=== PATIENT | female | born 1995 | race African-American/Black ===

== ENCOUNTER 2017-06-25 23:57 | Inpatient (IN) | payer BC ==
[2017-06-26] MEDS ORDERED: fentaNYL* 50 MCG/ML 2 ML VIAL (100 MCG VIAL) ONE (05:57)
[2017-06-26 06:16] LABS: Hematocrit 32 % (35-47); Hemoglobin 10.2 g/dl (12.0-16.0); Mean Corpuscular HGB Conc 32 g/dl (31-36); Mean Corpuscular Hemoglobin 24 pg (27-31); Mean Corpuscular Volume 76 fL (80-97); Mean Platelet Volume 9 um3 (7.4-10.4); Red Cell Distribution Width 16 % (10.5-15); White Blood Count 11.4 10^3/ul (3.5-10.8)
[2017-06-26] MEDS ORDERED: Famotidine TAB* 20 MG PO PRN (06:56)
[2017-06-26] MEDS ORDERED: Phenylephrine IV* 40 MCG/ML 10 ML SYRINGE IV PUSH PRN (06:56)
[2017-06-26] MEDS ORDERED: Sodium Citrate/Citric Acid* 15 ML UDC PO PRN (06:56)
[2017-06-26] MEDS ORDERED: Oxytocin in LR* 20 UNITS/1,000 ML BAG IVPB SCH (07:00)
[2017-06-26] MEDS ORDERED: Zolpidem TAB* 5 MG PO PRN (10:21)
[2017-06-26] MEDS ORDERED: oxyCODONE/Acetamin 5/325 MG* TAB PO PRN (10:21)
[2017-06-26] MEDS ORDERED: Glycerin ADULT SUPP PR PRN (10:21)
[2017-06-26] MEDS ORDERED: Witch Hazel PAD* JAR TOPICAL PRN (10:21)
[2017-06-26] MEDS ORDERED: Acetaminophen TAB* 325 MG PO PRN (10:21)
[2017-06-26] MEDS ORDERED: Dibucaine 1% 28.35 GM TUBE PR PRN (10:21)
[2017-06-26] MEDS: Ibuprofen TAB* 600 MG PO PRN ×2 (10:44→19:08)
[2017-06-26] MEDS ORDERED: Simethicone CHEW TAB* 80 MG PO SCH (12:30)
[2017-06-26] MEDS: Docusate CAP* 100 MG PO SCH ×2 (14:05→20:10)
[2017-06-27] MEDS: Ibuprofen TAB* 600 MG PO PRN ×3 (01:52→21:12)
[2017-06-27 06:07] LABS: Hematocrit 26 % (35-47); Hemoglobin 8.3 g/dl (12.0-16.0); Mean Corpuscular HGB Conc 31 g/dl (31-36); Mean Corpuscular Hemoglobin 24 pg (27-31); Mean Corpuscular Volume 76 fL (80-97); Mean Platelet Volume 9 um3 (7.4-10.4); Red Blood Count 3.47 10^6/ul (4.0-5.4); Red Cell Distribution Width 16 % (10.5-15); White Blood Count 13.9 10^3/ul (3.5-10.8)
[2017-06-27] MEDS: Docusate CAP* 100 MG PO SCH ×3 (08:52→21:12)
[2017-06-27] MEDS: Ferrous Gluconate TAB* 324 MG TAB PO SCH ×2 (08:52→21:12)
[2017-06-28] MEDS: Ibuprofen TAB* 600 MG PO PRN (08:09)
[2017-06-28 08:12] VITALS: BP 117/74
[2017-06-28] MEDS: Docusate CAP* 100 MG PO SCH (08:51)
[2017-06-28] MEDS: Ferrous Gluconate TAB* 324 MG TAB PO SCH (08:51)
== END 2017-06-28 10:39 | disposition home or self-care (01) | DRG 560 ==
LOC: MCHOBOUT 23:57 → MCHOB 06-26 02:49
PROVIDERS: ADMIT Obstetrics & Gynecology; ATTEND Obstetrics & Gynecology
PROC: 4A1HXCZ Monitoring of Products of Conception, Cardiac Rate, External Approach (ICD-10-PCS; principal; 2017-06-26)
PROC: 10E0XZZ Delivery of Products of Conception, External Approach (ICD-10-PCS; 2017-06-26)
PROC: 10907ZC Drainage of Amniotic Fluid, Therapeutic from Products of Conception, Via Natural or Artificial Opening (ICD-10-PCS; 2017-06-26)
PROC: 0KQM0ZZ Repair Perineum Muscle, Open Approach (ICD-10-PCS; 2017-06-26)
DX: O69.81X0 Labor and delivery complicated by cord around neck, without compression, not applicable or unspecified (principal); O90.81 Anemia of the puerperium; Z3A.39 39 weeks gestation of pregnancy; Z37.0 Single live birth; O70.1 Second degree perineal laceration during delivery
CPT/HCPCS: 36415; 85025; 85027; 86850; 86900; 86901; A9270-GY; J3010

== ENCOUNTER → 2017-07-04 09:19 | Emergency (ER) | payer BC ==
[2017-07-04 10:09] LABS: Hematocrit 33 % (35-47); Hemoglobin 10.2 g/dl (12.0-16.0); Mean Corpuscular HGB Conc 31 g/dl (31-36); Mean Corpuscular Hemoglobin 24 pg (27-31); Mean Corpuscular Volume 76 fL (80-97); Mean Platelet Volume 9 um3 (7.4-10.4); Red Blood Count 4.35 10^6/ul (4.0-5.4); Red Cell Distribution Width 17 % (10.5-15); White Blood Count 5.8 10^3/ul (3.5-10.8)
[2017-07-04 10:28] LABS: Albumin 3.6 g/dL (3.2-5.2); BUN/Creatinine Ratio 11.8 (8-20); Calcium 8.6 mg/dL (8.6-10.3); EGFR African American 136.7 (>60); EGFR Non-African American 106.3 (>60); Globulin 3.4 g/dL (2-4); Potassium 3.5 mmol/L (3.5-5.0); Total Bilirubin 0.5 mg/dL (0.2-1.0)
--- NOTE | 2017-07-04 10:39 | ED ---
GI/ HPI - HPI Summary HPI Summary: 22F 1 week presents with vaginal bleeding for 2 days. She has been passing clots. She has been soaking a pad an hour. She states the delivery was vaginal and uncomplicated. She denies any history of hemorrhage. She denies any family history of bleeding disorders. She denies any fever. She has been having abdominal cramping that is relieved by ibuprofen. She denies any nausea, vomiting, diarrhea, or constipation. no lightheadedness or palpitations. - History of Current Complaint Chief Complaint: EDVaginalBleeding Time Seen by Provider: 07/04/17 09:43 Stated Complaint: VAG BLEEDING Pain Intensity: 3 - Allergy/Home Medications Allergies/Adverse Reactions: Allergies Allergy/AdvReac Type Severity Reaction Status Date / Time No Known Allergies Allergy Verified 06/26/17 12:38 PMH/Surg Hx/FS Hx/Imm Hx Endocrine/Hematology History: Reports: Hx Anemia Cardiovascular History: Denies: Hx Hypertension Infectious Disease History: Denies: Traveled Outside the [place] in Last 30 Days - Family History Known Family History: Negative: Blood Disorder - Social History Alcohol Use: None Substance Use Type: Reports: None Smoking Status (MU): Never Smoked Tobacco Have You Smoked in the Last Year: No Review of Systems Negative: Fever Negative: Chest Pain Negative: Shortness Of Breath Positive: Abdominal Pain, Other - vaginal bleeding. Negative: Vomiting, Diarrhea, Nausea All Other Systems Reviewed And Are Negative: Yes Physical Exam Triage Information Reviewed: Yes Vital Signs On Initial Exam: Initial Vitals Temp Pulse Resp BP Pulse Ox 97.4 F 73 18 138/90 99 07/04/17 09:21 07/04/17 09:21 07/04/17 09:21 07/04/17 09:21 07/04/17 09:21 Vital Signs Reviewed: Yes Appearance: Positive: Well-Appearing Skin: Positive: Warm, Dry Head/Face: Positive: Normal Head/Face Inspection Eyes: Positive: Normal, EOMI, BEAN, Conjunctiva Clear ENT: Positive: Normal ENT inspection, Pharynx normal, TMs normal Respiratory/Lung Sounds: Positive: Clear to Auscultation, Breath Sounds Present Cardiovascular: Positive: Normal, RRR Abdomen Description: Positive: Soft, Other: - mild pelvic pain Bowel Sounds: Positive: Present Pelvic Exam: Positive: external exam normal, speculum exam normal, bimanual exam normal, no cerv. motion tender, blood - scant old blood, other - uterus less 1/4 of length to umblicius, closed os, no active bleeding from os, nontender, sutures intact no bleeding from sutures. Diagnostics - Vital Signs Vital Signs Temp Pulse Resp BP Pulse Ox 07/04/17 09:21 97.4 F 73 18 138/90 99 - Laboratory Lab Results: Lab Results 07/04/17 07/04/17 07/04/17 Range/Units 09:54 09:54 09:54 WBC 5.8 (3.5-10.8) 10^3/ul RBC 4.35 (4.0-5.4) 10^6/ul Hgb 10.2 L (12.0-16.0) g/dl Hct 33 L (35-47) % MCV 76 L (80-97) fL MCH 24 L (27-31) pg MCHC 31 (31-36) g/dl RDW 17 H (10.5-15) % Plt Count 265 (150-450) 10^3/ul MPV 9 (7.4-10.4) um3 Neut % (Auto) 57.6 (38-83) % Lymph % (Auto) 34.6 (25-47) % [place] % (Auto) 6.8 (1-9) % Eos % (Auto) 0.6 (0-6) % Baso % (Auto) 0.4 (0-2) % Absolute Neuts (auto) 3.3 (1.5-7.7) 10^3/ul Absolute Lymphs (auto) 2.0 (1.0-4.8) 10^3/ul Absolute Monos (auto) 0.4 (0-0.8) 10^3/ul Absolute Eos (auto) 0 (0-0.6) 10^3/ul Absolute Basos (auto) 0 (0-0.2) 10^3/ul Absolute Nucleated RBC 0.01 10^3/ul Nucleated RBC % 0.1 INR (Anticoag Therapy) 0.99 (0.89-1.11) APTT 30.1 (26.0-36.3) seconds Sodium 137 (133-145) mmol/L Potassium 3.5 (3.5-5.0) mmol/L Chloride 108 (101-111) mmol/L Carbon Dioxide 22 (22-32) mmol/L Anion Gap 7 (2-11) mmol/L BUN 8 (6-24) mg/dL Creatinine 0.68 (0.51-0.95) mg/dL Est GFR ( Amer) 136.7 (>60) Est GFR (Non-Af Amer) 106.3 (>60) BUN/Creatinine Ratio 11.8 (8-20) Glucose 78 (70-100) mg/dL Lactic Acid (0.5-2.0) mmol/L Calcium 8.6 (8.6-10.3) mg/dL Total Bilirubin 0.50 (0.2-1.0) mg/dL AST 13 (13-39) U/L ALT 13 (7-52) U/L Alkaline Phosphatase 81 (34-104) U/L C-React Prot High Sens 14.90 mg/L Total Protein 7.0 (6.4-8.9) g/dL Albumin 3.6 (3.2-5.2) g/dL Globulin 3.4 (2-4) g/dL Albumin/Globulin Ratio 1.1 (1-3) 07/04/17 Range/Units 09:54 WBC (3.5-10.8) 10^3/ul RBC (4.0-5.4) 10^6/ul Hgb (12.0-16.0) g/dl Hct (35-47) % MCV (80-97) fL MCH (27-31) pg MCHC (31-36) g/dl RDW (10.5-15) % Plt Count (150-450) 10^3/ul MPV (7.4-10.4) um3 Neut % (Auto) (38-83) % Lymph % (Auto) (25-47) % [place] % (Auto) (1-9) % Eos % (Auto) (0-6) % Baso % (Auto) (0-2) % Absolute Neuts (auto) (1.5-7.7) 10^3/ul Absolute Lymphs (auto) (1.0-4.8) 10^3/ul Absolute Monos (auto) (0-0.8) 10^3/ul Absolute Eos (auto) (0-0.6) 10^3/ul Absolute Basos (auto) (0-0.2) 10^3/ul Absolute Nucleated RBC 10^3/ul Nucleated RBC % INR (Anticoag Therapy) (0.89-1.11) APTT (26.0-36.3) seconds Sodium (133-145) mmol/L Potassium (3.5-5.0) mmol/L Chloride (101-111) mmol/L Carbon Dioxide (22-32) mmol/L Anion Gap (2-11) mmol/L BUN (6-24) mg/dL Creatinine (0.51-0.95) mg/dL Est GFR ( Amer) (>60) Est GFR (Non-Af Amer) (>60) BUN/Creatinine Ratio (8-20) Glucose (70-100) mg/dL Lactic Acid 0.8 (0.5-2.0) mmol/L Calcium (8.6-10.3) mg/dL Total Bilirubin (0.2-1.0) mg/dL AST (13-39) U/L ALT (7-52) U/L Alkaline Phosphatase (34-104) U/L C-React Prot High Sens mg/L Total Protein (6.4-8.9) g/dL Albumin (3.2-5.2) g/dL Globulin (2-4) g/dL Albumin/Globulin Ratio (1-3) Result Diagrams: 07/04/17 09:54 07/04/17 09:54 Lab Statement: Any lab studies that have been ordered have been reviewed, and results considered in the medical decision making process. - Ultrasound No standard instances Ultrasound Interpretation: Positive (See Comments) - IMPRESSION: THERE IS COMPLEX FLUID WITHIN THE ENDOMETRIAL CAVITY. THERE IS NO GROSS EVIDENCE FOR RETAINED PRODUCTS OF CONCEPTION. IF THE PATIENT'S SYMPTOMS PERSIST, RECOMMEND FOLLOW-UP IMAGING. Ultrasound Interpretation Completed By: Radiologist JOHNNY Course/Dx - Course Course Of Treatment: 22F 1 week presents with vaginal bleeding for 2 days. She has been passing clots. She has been soaking a pad an hour. She states the delivery was vaginal and uncomplicated. She denies any history of hemorrhage. She denies any family history of bleeding disorders. She denies any fever. She has been having abdominal cramping that is relieved by ibuprofen. She denies any nausea, vomiting, diarrhea, or constipation. no signs of blood loss. afebrile. pelvic exam uterus 1/4 way from umbilcus, no active bleeding os, scant amount of older blood, os not open. sutures dont look infected. no CMT. labs hgb 10.2 which appears chronic. vitals stable. u/s shows fluids, discussed results with dr murry who states patient sounds safe for discharge. patietn understands and agrees with plan. - Diagnoses Differential Diagnoses - Female: Pelvic Inflammatory Disease, Sepsis, Other - retain products, Provider Diagnoses: bleeding - Physician Notifications Discussed Care Of Patient With: dr murry Time Discussed With Above Provider: 11:12 - patient appropatie for follow up as scheduled. Discharge - Discharge Plan Condition: Good Disposition: HOME Patient Education Materials: Bleeding (ED) Referrals: No Primary Care Phys,NOPCP [Primary Care Provider] - Kyle Murry MD [Medical Doctor] - Additional Instructions: Follow up with ob as scheduled Return to ED if develop fever, abnormal vaginal discharge or extreme abdominal pain, or any new or worsening symptoms
--- NOTE | 2017-07-04 10:59 | RAD ---
INDICATION: Post bleeding. COMPARISON: Comparison is made with a prior pelvic ultrasound from September 18, 2015. TECHNIQUE: Multiple real-time transabdominal images of the pelvis were obtained. FINDINGS: The uterus is enlarged consistent with the patient's state. The uterus measured 13.2 x 5.5 x 11.2 cm. The endometrial echo measures 0.7 cm in thickness. There is complex fluid within the endometrial canal. There is no gross evidence for retained products of conception. No increased vascularity is noted. The right ovary measured 3.1 x 1.2 x 1.9 cm. The left ovary measured 2.6 x 1.9 x 1.6 cm. There is vascular flow within both ovaries. No free intraperitoneal fluid is seen. IMPRESSION: THERE IS COMPLEX FLUID WITHIN THE ENDOMETRIAL CAVITY. THERE IS NO GROSS EVIDENCE FOR RETAINED PRODUCTS OF CONCEPTION. IF THE PATIENT'S SYMPTOMS PERSIST, RECOMMEND FOLLOW-UP IMAGING.
[2017-07-04 12:04] VITALS: BP 122/72
== END | disposition home or self-care (01) ==
LOC: ED 09:19
DX: O72.2 Delayed and secondary postpartum hemorrhage (principal)
CPT/HCPCS: 36415; 76856; 80053; 83605; 84702; 85025; 85610; 85730; 86141; 87480; 87491; 87510; 87591; 87661; 99282